=== PATIENT | female | born 1985 | race Caucasian/White ===

== ENCOUNTER 2023-08-13 19:05 | Emergency (ER) | payer BC ==
[2023-08-13 19:20] VITALS: BP 120/65; PULSE 82; RESP 16; TEMP 97.6; BMI 39.3
[2023-08-13] MEDS ORDERED: METHOCARBAMOL 500 MG TABLET PO ONE (19:43)
[2023-08-13] MEDS ORDERED: METOCLOPRAMIDE HCL INJECTION 10 MG/2 ML VIAL IM ONE (19:43)
[2023-08-13] MEDS ORDERED: ACETAMINOPHEN 500 MG TABLET (FP) PO ONE (19:44)
[2023-08-13] MEDS ORDERED: ACETAMINOPHEN 500 MG TABLET (FP) ONE (20:13)
[2023-08-13] MEDS ORDERED: METHOCARBAMOL 500 MG TABLET ONE (20:13)
[2023-08-13] MEDS ORDERED: METOCLOPRAMIDE HCL INJECTION 10 MG/2 ML VIAL ONE (20:13)
== END 2023-08-13 20:55 | disposition home or self-care (01) ==
LOC: FER 19:05
PROC: 3E023GC Introduction of Other Therapeutic Substance into Muscle, Percutaneous Approach (ICD-10-PCS; principal; 2023-08-13)
DX: S09.90XA Unspecified injury of head, initial encounter (principal); R42 Dizziness and giddiness; W17.81XA Fall down embankment (hill), initial encounter
CPT/HCPCS: 70450-TC; 84703; 99284-25